=== PATIENT | male | born 1970 | race Two or more races ===

== ENCOUNTER 2019-05-04 08:40 | Emergency (ER) | payer MEDICAID ==
[~2019-05-04] VITALS: Ht 175.3 cm; Wt 84.0 kg
[2019-05-04] MEDS ORDERED: SODIUM CHLORIDE 0.9% 1,000 ML IV ONE (09:25)
[2019-05-04] MEDS ORDERED: ONDANSETRON HCL 4MG/2ML INJ IV ONE (09:30)
[2019-05-04] MEDS ORDERED: LIDOCAINE 1%/EPI 1:100,000 10 ML VIAL IJ ONE (09:30)
[2019-05-04] MEDS ORDERED: TETANUS, DIPHTHERIA, PERTUSSIS VAC/PF 0.5ML (>7YR OLD) IM ONE (09:30)
[2019-05-04] MEDS ORDERED: MORPHINE SULFATE 4 MG/ML CPJ (NOT FOR IM USE) IV ONE (09:30)
[2019-05-04] MEDS ORDERED: CEFAZOLIN 1000MG PREMIX 50 ML IV ONE (09:45)
[2019-05-04] MEDS ORDERED: LIDOCAINE HCL/EPINEPHRINE 1%-EPI 1:100,000 20 ML VIAL IJ SCH (09:45)
[2019-05-04 10:02] LABS: BASOPHILS % 0.2 % (0.0-2.0); HEMATOCRIT. 42.4 % (42.0-52.0); HEMOGLOBIN. 14.3 g/dL (14.0-18.0); LYMPHOCYTES % 7.7 % (20.0-50.0); MEAN CORPUSCULAR HEMOGLOBIN 29.6 pg (28.0-32.0); MEAN CORPUSCULAR VOLUME 87.7 fL (80.0-94.0); MEAN PLATELET VOLUME 8.6 fl (7.4-10.4); MONOCYTES % 4.1 % (2.0-8.0); PLATELET 218 x1000/uL (130-400); RED BLOOD CELL COUNT 4.84 mill/uL (4.7-6.1); RED CELL DISTRIBUTION WIDTH 15.3 % (11.6-14.6)
[2019-05-04 10:05] LABS: CHLORIDE 107 mEq/L (98-107)
[2019-05-04 10:06] LABS: PROTHROMBIN TIME 10.4 sec (9.6-11.0)
[2019-05-04] MEDS ORDERED: IOHEXOL-300 100 ML BOTTLE ONE (11:59)
[2019-05-04 14:01] VITALS: BP 124/74
== END 2019-05-04 14:02 | disposition short-term general hospital (02) ==
LOC: ER 08:40
DX: S52.532A Colles' fracture of left radius, initial encounter for closed fracture (principal); S52.531A Colles' fracture of right radius, initial encounter for closed fracture; S09.8XXA Other specified injuries of head, initial encounter; S20.219A Contusion of unspecified front wall of thorax, initial encounter; W13.2XXA Fall from, out of or through roof, initial encounter; Y93.89 Activity, other specified; Y92.89 Other specified places as the place of occurrence of the external cause; Y99.0 Civilian activity done for income or pay; Z23 Encounter for immunization
CPT/HCPCS: 36415; 70450; 71045; 71260; 73110; 74177; 80053; 84484; 85025; 85610; 86850; 86870; 86900; 86901; 90471; 90715; 93005; 96365; 96375; 99291; J0690; J2270; J2405; J3490; J7030; Q9967